=== PATIENT | male | born 1950 | race African-American/Black ===

== ENCOUNTER 2019-01-31 16:37 | Emergency (ER) | payer MEDICARE ==
[~2019-01-31] VITALS: Ht 175.3 cm; Wt 98.9 kg
[~2019-01-31 16:37] MED LIST: AMLO5TAB9 PO; ASPI-605 PO; ESCI10TA PO; LORA-259 PO; MYCO250C PO; PRED10TA PO; SIME80TA45 PO; TACR1CAP PO; TAMS-3 PO; VALS160T2 PO
--- NOTE | 2019-01-31 16:58 | NUR ---
LUIGI VIDALES AT BEDSIDE FOR MSE.
--- NOTE | 2019-01-31 17:20 | NUR ---
CLINICAL INTERVIEWER AT BEDSIDE.
[2019-01-31 17:30] LABS: *BILIRUBIN,URIN NEGATIVE (NEGATIVE); *CLARITY,URINE CLEAR (CLEAR); *COLOR,URINE YELLOW (YELLOW); *KETONES,URINE NEGATIVE (NEGATIVE); *UROBILINOGEN,URINE 0.2 E.U./dl (NORMAL); LEUKOCYTE ESTERASE ,URINE NEGATIVE (NEGATIVE); NITRITE, URINE NEGATIVE (NEGATIVE); PH,URINE 6.5 (5.0-8.0); UGLUCOSE NEGATIVE (NEGATIVE)
[2019-01-31 17:31] LABS: BASOPHILS # (AUTO) 0.1 K/uL (0.0-8.0); BASOPHILS % (AUTO) 0.7 % (0.0-2.0); EOSINOPHILS % (AUTO) 0.2 % (0.0-7.0); HEMOGLOBIN 14.3 g/dL (12.5-16.3); LYMPHOCYTES # (AUTO) 0.7 K/uL (20.0-40.0); LYMPHOCYTES % (AUTO) 8.6 % (20.5-51.5); MEAN CORPUSCULAR HGB CONC 32 g/dL (32.5-36.3); MEAN CORPUSCULAR VOLUME 81.7 fL (73.0-96.2); MONOCYTES # (AUTO) 0.9 K/uL (2.0-10.0); NEUTROPHILS # (AUTO) 6.5 K/uL (1.8-8.9); NEUTROPHILS % (AUTO) 79.5 % (38.5-71.5); PLATELET COUNT (AUTO) 234 K/uL (152-348); WHITE BLOOD COUNT (AUTO) 8.1 K/uL (3.6-10.2)
[2019-01-31 17:39] LABS: CREATININE 1.7 mg/dL (0.6-1.3)
[2019-01-31 17:49] LABS: *BLOOD, URINE TRACE (NEGATIVE)
[2019-01-31 17:50] LABS: SQUAMOUS EPITHELIAL CELL,UR FEW /HPF (NONE SEEN); WBC,URINE 0-3 /HPF (0-3)
[2019-01-31 17:51] LABS: MUCUS,URINE FEW /LPF (0-FEW)
[2019-01-31 17:52] LABS: BILIRUBIN,DIRECT 0.2 mg/dL (0.0-0.2); BILIRUBIN,TOTAL 0.3 mg/dL (0.2-1.0); TOTAL PROTEIN, SERUM 7.3 g/dL (6.4-8.2)
[2019-01-31] MEDS ORDERED: OSELTAMIVIR PHOSPHATE 75 MG CAPSULE ONE (18:27)
--- NOTE | 2019-01-31 18:27 | NUR ---
Patient discharged to home in stable conditon. Written and verbal after care instructions given. Patient verbalizes understanding of instructions.
[2019-01-31] MEDS ORDERED: OSELTAMIVIR PHOSPHATE 75 MG CAPSULE PO ONE (18:30)
== END 2019-01-31 18:29 | disposition home or self-care (01) ==
LOC: ER 16:38
DX: J10.1 Influenza due to other identified influenza virus with other respiratory manifestations (principal); R53.83 Other fatigue; M79.10 Myalgia, unspecified site; I10 Essential (primary) hypertension; Z94.0 Kidney transplant status; Z88.1 Allergy status to other antibiotic agents; Z88.8 Allergy status to other drugs, medicaments and biological substances; Z79.899 Other long term (current) drug therapy; Z79.82 Long term (current) use of aspirin
CPT/HCPCS: 36415; 70030-TC; 71045; 83605; 85025; 85730; 87040; 87086; 87400; 93005; A4663

== ENCOUNTER 2019-11-23 17:30 | Inpatient (IN) | payer MEDICARE ==
[~2019-11-23] VITALS: Ht 175.3 cm; Wt 95.3 kg
[2019-11-23] MEDS ORDERED: IV NORMAL SALINE 1000 ML BAG IV ONE (19:15)
[2019-11-23 19:31] LABS: BASOPHILS % (AUTO) 0.1 % (0.0-2.0); EOSINOPHILS % (AUTO) 0.4 % (0.0-7.0); HEMATOCRIT 46.1 % (36.7-47.1); HEMOGLOBIN 14.7 g/dL (12.5-16.3); LYMPHOCYTES # (AUTO) 1.4 K/uL (20.0-40.0); LYMPHOCYTES % (AUTO) 18.4 % (20.5-51.5); MEAN CORPUSCULAR HEMOGLOBIN 26.1 uug (23.8-33.4); MEAN CORPUSCULAR HGB CONC 32 g/dL (32.5-36.3); MEAN CORPUSCULAR VOLUME 81.6 fL (73.0-96.2); MONOCYTES % (AUTO) 13.7 % (0.0-11.0); NEUTROPHILS % (AUTO) 67.4 % (38.5-71.5); PLATELET COUNT (AUTO) 276 K/uL (152-348); RED BLOOD CELL COUNT(AUTO) 5.65 MIL/uL (4.06-5.63); WHITE BLOOD COUNT (AUTO) 7.4 K/uL (3.6-10.2)
[2019-11-23 19:56] LABS: CARBON DIOXIDE 24 mmol/L (21-32); CHLORIDE 106 mmol/L (98-107); CREATININE 1.7 mg/dL (0.6-1.3); GLUCOSE 104 mg/dL (74-106); POTASSIUM 4.2 mmol/L (3.5-5.1); UREA NITROGEN, BLOOD 23 mg/dL (7-18)
[2019-11-23 20:02] LABS: ALANINE AMINOTRANSFERASE 25 U/L (16-63); ALKALINE PHOSPHATASE 82 U/L (50-136); ASPARTATE AMINOTRANSFERASE 22 U/L (15-37); BILIRUBIN,DIRECT 0.1 mg/dL (0.0-0.2); BILIRUBIN,TOTAL 0.5 mg/dL (0.2-1.0); TOTAL PROTEIN, SERUM 7.4 g/dL (6.4-8.2)
[2019-11-23 21:20] LABS: *BILIRUBIN,URIN NEGATIVE (NEGATIVE); *CLARITY,URINE CLEAR (CLEAR); *COLOR,URINE YELLOW (YELLOW); *KETONES,URINE NEGATIVE (NEGATIVE); *UROBILINOGEN,URINE 0.2 E.U./dl (NORMAL); LEUKOCYTE ESTERASE ,URINE NEGATIVE (NEGATIVE); NITRITE, URINE NEGATIVE (NEGATIVE); UGLUCOSE NEGATIVE (NEGATIVE)
[2019-11-23 21:21] LABS: *BLOOD, URINE NEGATIVE (NEGATIVE)
[2019-11-23 21:29] LABS: BACTERIA,URINE NONE SEEN /HPF (NONE SEEN); RBC,URINE 0-3 /HPF (0-3); SQUAMOUS EPITHELIAL CELL,UR FEW /HPF (NONE SEEN); URINE AMORPHOUS URATE FEW /HPF; WBC,URINE 0-3 /HPF (0-3)
[2019-11-23 22:35] VITALS: BP 159/78
[2019-11-23] MEDS ORDERED: Z GUARD REMEDY PASTE 57 GM TUBE TOP PRN (23:15)
[2019-11-23] MEDS ORDERED: ONDANSETRON 4 MG/2 ML VIAL IV PRN (23:15)
[2019-11-23] MEDS ORDERED: TEMAZEPAM 15 MG CAPSULE PO PRN (23:15)
[2019-11-23] MEDS ORDERED: ACETAMINOPHEN 325 MG TABLET PO PRN (23:15)
[2019-11-24] VITALS (9 sets, daily range): BP systolic 136–175; BP diastolic 69–80
[2019-11-24] MEDS: IV NS 1000 ML 1,000 ML IV PRN (00:19)
[2019-11-24] MEDS: LORAZEPAM 1 MG TABLET PO PRN ×2 (00:19→21:14)
[2019-11-24 06:46] LABS: BASOPHILS % (AUTO) 0.1 % (0.0-2.0); EOSINOPHILS % (AUTO) 0.5 % (0.0-7.0); HEMATOCRIT 42.8 % (36.7-47.1); HEMOGLOBIN 13.5 g/dL (12.5-16.3); LYMPHOCYTES # (AUTO) 1.2 K/uL (20.0-40.0); LYMPHOCYTES % (AUTO) 22.1 % (20.5-51.5); MEAN CORPUSCULAR HEMOGLOBIN 25.9 uug (23.8-33.4); MEAN CORPUSCULAR HGB CONC 32 g/dL (32.5-36.3); MONOCYTES # (AUTO) 0.7 K/uL (2.0-10.0); MONOCYTES % (AUTO) 12.6 % (0.0-11.0); NEUTROPHILS # (AUTO) 3.6 K/uL (1.8-8.9); NEUTROPHILS % (AUTO) 64.7 % (38.5-71.5); PLATELET COUNT (AUTO) 250 K/uL (152-348); RED BLOOD CELL COUNT(AUTO) 5.22 MIL/uL (4.06-5.63); WHITE BLOOD COUNT (AUTO) 5.6 K/uL (3.6-10.2)
[2019-11-24 07:01] LABS: ALANINE AMINOTRANSFERASE 20 U/L (16-63); ALKALINE PHOSPHATASE 67 U/L (50-136); ASPARTATE AMINOTRANSFERASE 23 U/L (15-37); BILIRUBIN,TOTAL 0.5 mg/dL (0.2-1.0); CARBON DIOXIDE 23 mmol/L (21-32); CHLORIDE 109 mmol/L (98-107); CREATININE 1.4 mg/dL (0.6-1.3); GLUCOSE 84 mg/dL (74-106); PHOSPHOROUS 2.3 mg/dL (2.5-4.9); POTASSIUM 3.9 mmol/L (3.5-5.1); TOTAL PROTEIN, SERUM 6.1 g/dL (6.4-8.2); UREA NITROGEN, BLOOD 19 mg/dL (7-18)
[2019-11-24 07:10] LABS: MAGNESIUM 1.2 mg/dL (1.8-2.4)
[2019-11-24 07:11] LABS: THYROID STIMULATING HORMONE 1.879 mIU/mL (0.358-3.740)
[2019-11-24 07:49] LABS: CHOLESTEROL 97 mg/dL (<200); HDL CHOLESTEROL 47 mg/dL (40-60); TRIGLYCERIDES 103 MG/DL (30-150)
[2019-11-24] MEDS ORDERED: MAGNESIUM SULFATE 2 GM in IV DEXTROSE 5% 100 ML IV ONE (08:45)
[2019-11-24] MEDS ORDERED: TACROLIMUS ANHYDROUS 1 MG CAPSULE PO SCH (09:00)
[2019-11-24] MEDS: TACROLIMUS ANHYDROUS 0.5 MG CAPSULE PO SCH ×2 (09:09→17:10)
[2019-11-24] MEDS: ASPIRIN EC 81 MG TABLET.DR PO SCH (09:14)
[2019-11-24] MEDS: predniSONE 10 MG TABLET PO SCH (09:15)
[2019-11-24] MEDS ORDERED: NEUTRA PHOS PACKET PO ONE (09:15)
[2019-11-24] MEDS: AMLODIPINE 5 MG TABLET PO SCH ×2 (09:16→21:14)
[2019-11-24] MEDS: MYCOPHENOLATE MOFETIL 250 MG CAPSULE PO SCH ×2 (09:17→17:10)
[2019-11-24] MEDS: MAGNESIUM SULFATE/D5W 100 ML IV SCH ×2 (09:18→10:48)
[2019-11-25 00:39] VITALS: BP 149/78
[2019-11-25] MEDS: IV NS 1000 ML 1,000 ML IV PRN (03:56)
[2019-11-25 05:11] VITALS: BP 131/77
[2019-11-25 06:49] LABS: CREATININE 1.3 mg/dL (0.6-1.3); MAGNESIUM 1.5 mg/dL (1.8-2.4); PHOSPHOROUS 2.4 mg/dL (2.5-4.9)
[2019-11-25 06:56] LABS: BASOPHILS % (AUTO) 0.2 % (0.0-2.0); NEUTROPHILS # (AUTO) 6.5 K/uL (1.8-8.9)
[2019-11-25 07:26] LABS: EOSINOPHILS % (AUTO) 0.4 % (0.0-7.0); LYMPHOCYTES # (AUTO) 1.2 K/uL (20.0-40.0); LYMPHOCYTES % (AUTO) 13.6 % (20.5-51.5); MEAN CORPUSCULAR HEMOGLOBIN 26.1 uug (23.8-33.4); MEAN CORPUSCULAR HGB CONC 32 g/dL (32.5-36.3); MEAN CORPUSCULAR VOLUME 81.7 fL (73.0-96.2); MONOCYTES # (AUTO) 0.8 K/uL (2.0-10.0); NEUTROPHILS % (AUTO) 76.8 % (38.5-71.5); PLATELET COUNT (AUTO) 256 K/uL (152-348); RED BLOOD CELL COUNT(AUTO) 5.39 MIL/uL (4.06-5.63)
[2019-11-25 07:29] LABS: WHITE BLOOD COUNT (AUTO) 8.5 K/uL (3.6-10.2)
[2019-11-25] MEDS: predniSONE 10 MG TABLET PO SCH (09:24)
[2019-11-25] MEDS: ASPIRIN EC 81 MG TABLET.DR PO SCH (09:24)
[2019-11-25] MEDS: TACROLIMUS ANHYDROUS 0.5 MG CAPSULE PO SCH (09:24)
[2019-11-25 09:25] VITALS: BP 161/75
[2019-11-25] MEDS: AMLODIPINE 5 MG TABLET PO SCH (09:25)
[2019-11-25] MEDS: MYCOPHENOLATE MOFETIL 250 MG CAPSULE PO SCH (09:27)
[2019-11-25] MEDS ORDERED: MAGNESIUM OXIDE 400 MG TABLET PO ONE (10:00)
[2019-11-25] MEDS ORDERED: NEUTRA PHOS PACKET PO ONE (10:00)
== END 2019-11-25 11:00 | disposition home or self-care (01) | DRG 698 ==
LOC: ER 17:33 → TELE3 22:06
PROVIDERS: ADMIT Hospitalist; ATTEND Hospitalist
DX: T86.19 Other complication of kidney transplant (principal); N17.0 Acute kidney failure with tubular necrosis; E86.0 Dehydration; J32.2 Chronic ethmoidal sinusitis; E83.42 Hypomagnesemia; E83.39 Other disorders of phosphorus metabolism; F12.90 Cannabis use, unspecified, uncomplicated; J84.10 Pulmonary fibrosis, unspecified; R00.1 Bradycardia, unspecified; I11.9 Hypertensive heart disease without heart failure; I70.0 Atherosclerosis of aorta; E78.5 Hyperlipidemia, unspecified; K59.00 Constipation, unspecified
CPT/HCPCS: 36415; 70030-TC; 70450; 71045; 83735; 84100; 84443; 85025; 85730; 93005; 93307; 93880; A4663; G0378; J3475; J7030; J7507; J7512; J7517

== ENCOUNTER 2019-12-19 18:02 | Emergency (ER) | payer MEDICARE ==
[~2019-12-19] VITALS: Ht 175.3 cm; Wt 98.0 kg
[2019-12-19] MEDS ORDERED: MORPHINE SULFATE 10 MG/1 ML DISP.SYRIN IM ONE (18:15)
[2019-12-19] MEDS ORDERED: ONDANSETRON 4 MG/2 ML VIAL IM ONE (18:15)
[2019-12-19] MEDS ORDERED: ONDANSETRON 4 MG/2 ML VIAL ONE (18:17)
[2019-12-19] MEDS ORDERED: MORPHINE SULFATE 4 MG/1 ML DISP.SYRIN ONE (18:17)
[2019-12-19] MEDS ORDERED: MORPHINE SULFATE 2 MG/1 ML DISP.SYRIN ONE (18:18)
[2019-12-19] MEDS ORDERED: IV NORMAL SALINE 1000 ML BAG IV ONE (18:45)
--- NOTE | 2019-12-19 19:01 | NUR ---
Patient discharged to home in stable conditon. Written and verbal after care instructions given. Patient verbalizes understanding of instructions.pt accompanied by . pt not driving.
[2019-12-19 19:02] VITALS: BP 161/71
== END 2019-12-19 19:03 | disposition home or self-care (01) ==
LOC: ER 18:02
DX: M54.5 Low back pain (principal)
CPT/HCPCS: 96372 ×2; 99284; J2270 ×3; J2405; A4663; J7030

== ENCOUNTER 2020-03-27 00:21 | Emergency (ER) | payer MEDICARE ==
[~2020-03-27] VITALS: Ht 175.3 cm; Wt 95.3 kg
[~2020-03-27 00:21] MED LIST changes: -ESCI10TA PO; -SIME80TA45 PO; -TACR1CAP PO; +TACR1CAP2 PO; -TAMS-3 PO; -VALS160T2 PO
--- NOTE | 2020-03-27 00:21 | NUR ---
Pt brought in by [id number]. AO x 4. Per patient, he is here for lower back pain, currently 04/01, but patient was unable to get up from the floor as he went to the bathroom today. Denies any other issues or complaints. Breathing even and unlabored. No signs of acute distress. Side rails up x 2. Bed locked in position.
--- NOTE | 2020-03-27 00:30 | NUR ---
Dr Tijerina at bedside for MSE.
[2020-03-27] MEDS ORDERED: MORPHINE SULFATE 4 MG/1 ML DISP.SYRIN ONE (00:38)
[2020-03-27] MEDS ORDERED: ONDANSETRON 4 MG/2 ML VIAL ONE (00:38)
[2020-03-27] MEDS ORDERED: MORPHINE SULFATE 4 MG/1 ML DISP.SYRIN IM ONE (00:45)
[2020-03-27] MEDS ORDERED: ONDANSETRON 4 MG/2 ML VIAL IM ONE (00:45)
[2020-03-27 00:58] VITALS: BP 120/77
--- NOTE | 2020-03-27 01:02 | NUR ---
Pt verbalized that pain is now 3/10 only when moving, and better during rest. MD cleared patient for discharge and RN explained all discharge instructions to patient. Pt's is picking up pt, pt is aware that he cannot drive or operate any machinery since Morphine was administered. Denies any feeling of nausea after Zofran was given. Pt verbalized understanding of all instructions and is aware of when to take home medications for pain/contact primary doctor or seek emergency care. Pt was wheeled out to the front door, assisted by RN to private car, with his driving. Reinforced instructions. Pt left in stable condition.
== END 2020-03-27 01:02 | disposition home or self-care (01) ==
LOC: ER 00:27
DX: M54.40 Lumbago with sciatica, unspecified side (principal); Z94.0 Kidney transplant status
CPT/HCPCS: 96372 ×2; 99284; J2270; J2405; A4663

== ENCOUNTER 2020-11-30 11:45 | Emergency (ER) | payer MEDICARE ==
[~2020-11-30] VITALS: Ht 175.3 cm; Wt 93.0 kg
[~2020-11-30 11:45] MED LIST changes: +AMLO-212 PO; -AMLO5TAB9 PO
[2020-11-30] MEDS ORDERED: IV NORMAL SALINE 1000 ML BAG IV ONE (12:15)
--- NOTE | 2020-11-30 12:19 | NUR ---
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 YASH Saucedo at [phone], per pt request, recieved the confirmation.
[2020-11-30 12:31] LABS: BASOPHILS % (AUTO) 0.2 % (0.0-2.0); EOSINOPHILS # (AUTO) 0.1 K/uL (0.0-0.7); EOSINOPHILS % (AUTO) 0.7 % (0.0-7.0); HEMATOCRIT 42.2 % (36.7-47.1); HEMOGLOBIN 13.2 g/dL (12.5-16.3); LYMPHOCYTES # (AUTO) 0.6 K/uL (20.0-40.0); LYMPHOCYTES % (AUTO) 5.1 % (20.5-51.5); MEAN CORPUSCULAR HEMOGLOBIN 25.8 uug (23.8-33.4); MEAN CORPUSCULAR HGB CONC 31 g/dL (32.5-36.3); MEAN CORPUSCULAR VOLUME 82.1 fL (73.0-96.2); MONOCYTES # (AUTO) 0.5 K/uL (2.0-10.0); MONOCYTES % (AUTO) 4.4 % (0.0-11.0); NEUTROPHILS # (AUTO) 10.7 K/uL (1.8-8.9); NEUTROPHILS % (AUTO) 89.6 % (38.5-71.5); PLATELET COUNT (AUTO) 240 K/uL (152-348); RED BLOOD CELL COUNT(AUTO) 5.14 MIL/uL (4.06-5.63)
[2020-11-30 12:37] LABS: CARBON DIOXIDE 23 mmol/L (21-32); CHLORIDE 104 mmol/L (98-107); CREATININE 1.8 mg/dL (0.6-1.3); GLUCOSE 115 mg/dL (74-106); POTASSIUM 3.9 mmol/L (3.5-5.1); UREA NITROGEN, BLOOD 34 mg/dL (7-18)
[2020-11-30 12:50] LABS: ALANINE AMINOTRANSFERASE 20 U/L (16-63); ALKALINE PHOSPHATASE 61 U/L (50-136); ASPARTATE AMINOTRANSFERASE 22 U/L (15-37); BILIRUBIN,DIRECT 0.1 mg/dL (0.0-0.2); BILIRUBIN,TOTAL 0.5 mg/dL (0.2-1.0); TOTAL PROTEIN, SERUM 7.4 g/dL (6.4-8.2)
[2020-11-30] MEDS ORDERED: DICYCLOMINE HCL LIQ 10 MG/5 ML UDC PO ONE (13:00)
[2020-11-30] MEDS ORDERED: MAG HYDROX/AL HYDROX/SIMETH 30 ML LIQUID UDC PO ONE (13:00)
[2020-11-30] MEDS ORDERED: DICYCLOMINE HCL LIQ 10 MG/5 ML UDC ONE (13:08)
[2020-11-30] MEDS ORDERED: MAG HYDROX/AL HYDROX/SIMETH 30 ML LIQUID UDC ONE (13:08)
--- NOTE | 2020-11-30 13:10 | NUR ---
pt requesting a second ekg to be done. md shahid.
--- NOTE | 2020-11-30 13:22 | NUR ---
Patient discharged to home in stable condition. Written and verbal after care instructions given. Patient verbalizes understanding of instructions. Stressed follow up or return to ER for worsening s/s.pt walks in steady gait. pt deneis cp/sob at the time of d/c. a copy of allthe studies provided for pt.
[2020-11-30 13:28] VITALS: BP 149/75
== END 2020-11-30 13:28 | disposition home or self-care (01) ==
LOC: ER 11:45
DX: R07.89 Other chest pain (principal); R94.31 Abnormal electrocardiogram [ECG] [EKG]; Z94.0 Kidney transplant status; I11.9 Hypertensive heart disease without heart failure; Z88.1 Allergy status to other antibiotic agents; Z88.8 Allergy status to other drugs, medicaments and biological substances; Z79.82 Long term (current) use of aspirin; Z79.52 Long term (current) use of systemic steroids; Z79.899 Other long term (current) drug therapy; Z20.822 Contact with and (suspected) exposure to COVID-19
CPT/HCPCS: 36415; 71045; 80048; 80076; 83880; 84484; 85025; 85730; 87426; 93005 ×2; 96360; 99285; U0003; 70030-TC; A4663; J7030

== ENCOUNTER 2022-05-11 16:22 | Emergency (ER) | payer MEDICARE ==
--- NOTE | 2022-05-11 16:33 | NUR ---
PT WAS CALLED TO TRIAGE AREA NO ANSWER. PT IS NOT IN WAITING ROOM AND NOT OUTSIDE OF ER.
== END 2022-05-11 16:54 | disposition left against medical advice (07) ==
LOC: ER 16:22
DX: Z53.21 Procedure and treatment not carried out due to patient leaving prior to being seen by health care provider (principal)

== ENCOUNTER 2022-08-19 18:02 | Inpatient (IN) | payer MEDICARE ==
[~2022-08-19] VITALS: Ht 175.3 cm; Wt 93.0 kg
[2022-08-19] MEDS ORDERED: IV NORMAL SALINE 1000 ML BAG IV ONE ×2 (19:00→20:30)
[2022-08-19 19:22] LABS: HEMATOCRIT 35.1 % (36.7-47.1); MEAN CORPUSCULAR HEMOGLOBIN 25.2 uug (23.8-33.4); MEAN CORPUSCULAR VOLUME 77.8 fL (73.0-96.2); PLATELET COUNT (AUTO) 319 K/uL (152-348)
[2022-08-19 19:28] LABS: CARBON DIOXIDE 25 mmol/L (21-32); CHLORIDE 103 mmol/L (98-107); CREATININE 2.1 mg/dL (0.6-1.3); GLUCOSE 95 mg/dL (74-106); POTASSIUM 4.4 mmol/L (3.5-5.1); UREA NITROGEN, BLOOD 60 mg/dL (7-18)
[2022-08-19 19:31] LABS: MAGNESIUM 1.5 mg/dL (1.8-2.4); PHOSPHOROUS 3.9 mg/dL (2.5-4.9)
[2022-08-19 19:36] LABS: ALANINE AMINOTRANSFERASE 112 U/L (16-63); ALKALINE PHOSPHATASE 84 U/L (50-136); ASPARTATE AMINOTRANSFERASE 116 U/L (15-37); BILIRUBIN,DIRECT 0.1 mg/dL (0.0-0.2); BILIRUBIN,TOTAL 0.2 mg/dL (0.2-1.0); TOTAL PROTEIN, SERUM 7.1 g/dL (6.4-8.2)
--- NOTE | 2022-08-19 19:48 | NUR ---
pt resting comfortably in bed. handoff report given to Sarah mendenhall RN. pt in stable condition.
[2022-08-19] MEDS ORDERED: ATOR10TA PO (21:09)
[2022-08-19] MEDS ORDERED: DUTA0.5C PO (21:09)
[2022-08-19] MEDS ORDERED: TADA5TAB2 PO (21:09)
[2022-08-19] MEDS ORDERED: ERGO400C PO (21:09)
[2022-08-19] MEDS ORDERED: ALLO100T PO (21:09)
[2022-08-19] MEDS ORDERED: PRED2.5T PO (21:09)
[2022-08-19] MEDS ORDERED: PANT40TA2 PO (21:09)
[2022-08-19] MEDS ORDERED: LEVO1CAP4 PO (21:09)
[2022-08-19] MEDS ORDERED: UBID50TA3 PO (21:09)
[2022-08-19] MEDS ORDERED: MAGN400C PO (21:09)
[2022-08-19] MEDS ORDERED: ESCI5TAB PO (21:09)
[2022-08-19] MEDS ORDERED: TRAZ-182 PO (21:09)
[2022-08-19] MEDS ORDERED: CINA30TA2 PO (21:09)
[2022-08-19] MEDS ORDERED: ACETAMINOPHEN ES 500 MG TABLET ONE (22:42)
[2022-08-19] MEDS ORDERED: ACETAMINOPHEN ES 500 MG TABLET PO ONE (22:45)
[2022-08-20] VITALS (7 sets, daily range): BP systolic 115–144; BP diastolic 53–66
[2022-08-20] MEDS ORDERED: MAGNESIUM OXIDE 400 MG TABLET PO ONE (00:45)
[2022-08-20] MEDS ORDERED: ACETAMINOPHEN 325 MG TABLET PO PRN (00:45)
[2022-08-20] MEDS ORDERED: ONDANSETRON 4 MG/2 ML VIAL IV PRN (00:45)
--- NOTE | 2022-08-20 06:00 | NUR ---
--RECEIVED PT NEW ADMIT FROM ER WITH C/O DIZZINESS. PT STATES HE LOST HIS BALANCE AND BECAME DIZZY WHEN HE CAME OUT OF AN UBER CAR. PT DENIES ANY DIZZINESS OF DISCOMFORT AT THIS TIME. PT HAS BEEN A/OX4. RESPS REG/UNLAB. ON . PT HAD AN IV VIA RIGHT ARM/AC-IV D/CD. NEW PIV STARTED IN LEFT ARM WRIST-20G. NS 75CC/HR INFUSING WELL INTO NEW LEFT WRIST IV. PT ALSO STATES THAT HE HAD A KIDNEY TRANSPLANT 18YRS AGO AND CONT. TO TAKE TRANSPLANT MEDS. PT HAS BEEN VOIDING WELL VIA URINAL->300CC-YELL/CLR. PT REQUESTED ATIVAN 0.5MG PO-ORD. WAS MADE FROM TODD VASQUEZ. MED NOT GIVEN YET-PT HAS BEEN SLEEPING QUIETLY. PT ENDORSED TO GRETEL ALEXIS RN
[2022-08-20 07:25] LABS: MEAN CORPUSCULAR VOLUME 77.3 fL (73.0-96.2); PLATELET COUNT (AUTO) 265 K/uL (152-348)
[2022-08-20 07:34] LABS: ALANINE AMINOTRANSFERASE 97 U/L (16-63); ALKALINE PHOSPHATASE 72 U/L (50-136); ASPARTATE AMINOTRANSFERASE 94 U/L (15-37); BILIRUBIN,DIRECT 0.1 mg/dL (0.0-0.2); BILIRUBIN,TOTAL 0.1 mg/dL (0.2-1.0); CARBON DIOXIDE 26 mmol/L (21-32); CHLORIDE 107 mmol/L (98-107); CHOLESTEROL 128 mg/dL (<200); CREATININE 1.7 mg/dL (0.6-1.3); GLUCOSE 72 mg/dL (74-106); HDL CHOLESTEROL 66 mg/dL (40-60); MAGNESIUM 1.4 mg/dL (1.8-2.4); PHOSPHOROUS 3.9 mg/dL (2.5-4.9); POTASSIUM 4.6 mmol/L (3.5-5.1); TRIGLYCERIDES 79 MG/DL (30-150); UREA NITROGEN, BLOOD 51 mg/dL (7-18)
--- NOTE | 2022-08-20 07:45 | NUR ---
received pt on bed resting. pt aox4. no complain of dizziness. ambulatory with assist. pt is fall risk. left wrist 20g patent and intact. vitals wnl. will cont to monitor.
--- NOTE | 2022-08-20 10:58 | NUR ---
pt will be transfer to [facility] per cm. notified.
[2022-08-20] MEDS ORDERED: TACR1CAP2 PO (11:06)
[2022-08-20] MEDS ORDERED: ROSU5TAB PO (11:09)
[2022-08-20 11:10] LABS: *OCCULT BLOOD STOOL NEGATIVE (NEGATIVE)
[2022-08-20] MEDS: MAGNESIUM SULFATE/D5W 100 ML IV SCH ×2 (11:45→13:24)
--- NOTE | 2022-08-20 14:20 | NUR ---
orthostatic bp obtained
[2022-08-20 14:45] LABS: *BILIRUBIN,URIN NEGATIVE (NEGATIVE); *CLARITY,URINE CLEAR (CLEAR); *COLOR,URINE YELLOW (YELLOW); *KETONES,URINE NEGATIVE (NEGATIVE); *UROBILINOGEN,URINE 0.2 E.U./dl (NORMAL); LEUKOCYTE ESTERASE ,URINE NEGATIVE (NEGATIVE); NITRITE, URINE NEGATIVE (NEGATIVE); PH,URINE 5.5 (5.0-8.0); UGLUCOSE NEGATIVE (NEGATIVE)
[2022-08-20 14:46] LABS: *BLOOD, URINE TRACE (NEGATIVE)
[2022-08-20] MEDS: MYCOPHENOLATE MOFETIL 250 MG CAPSULE PO SCH (18:18)
[2022-08-20] MEDS: ASPIRIN EC 81 MG TABLET.DR PO SCH (18:18)
[2022-08-20] MEDS: ALLOPURINOL 100 MG TABLET PO SCH (18:19)
[2022-08-20] MEDS: TRAZODONE 50 MG TABLET PO SCH (18:19)
[2022-08-20] MEDS: CHOLECALCIFEROL 1,000 UNIT TABLET PO SCH (18:19)
[2022-08-20] MEDS: ESCITALOPRAM OXALATE 10 MG TABLET PO SCH (18:19)
[2022-08-20] MEDS: CINACALCET HCL 30 MG TABLET PO SCH (18:19)
--- NOTE | 2022-08-20 20:43 | NUR ---
Pt rec'd awake alert On room air saturating 97% No distress noted.
[2022-08-20] MEDS ORDERED: ATORVASTATIN 20 MG TABLET PO SCH ×2 (21:00)
[2022-08-20] MEDS: TACROLIMUS ANHYDROUS 0.5 MG CAPSULE PO SCH (21:00)
[2022-08-20 21:08] LABS: BACTERIA,URINE NONE SEEN /HPF (NONE SEEN); MUCUS,URINE FEW /LPF (0-FEW); SQUAMOUS EPITHELIAL CELL,UR FEW /HPF (NONE SEEN); WBC,URINE 0-3 /HPF (0-3)
[2022-08-20] MEDS: LORAZEPAM 0.5 MG TABLET PO PRN (22:38)
[2022-08-21 00:37] VITALS: BP 115/59
[2022-08-21] MEDS: IV NS 1000 ML 1,000 ML IV PRN ×2 (01:23→17:15)
[2022-08-21 04:52] VITALS: BP 117/63
--- NOTE | 2022-08-21 06:36 | NUR ---
Pt noted with Heart rate low to 39 but asymptomatic. Awaken pt stated that he feels ok. Transfer Center Updated on pt's status. No bed available at [facility] at this time.
[2022-08-21 07:22] LABS: CARBON DIOXIDE 27 mmol/L (21-32); CHLORIDE 111 mmol/L (98-107); CREATININE 1.6 mg/dL (0.6-1.3); GLUCOSE 90 mg/dL (74-106); MAGNESIUM 1.8 mg/dL (1.8-2.4); POTASSIUM 4.8 mmol/L (3.5-5.1); UREA NITROGEN, BLOOD 40 mg/dL (7-18)
--- NOTE | 2022-08-21 07:30 | NUR ---
AWAKE ALERT AND ORIENTED X3 DENIES PAIN OR SOB,100% ON RA
[2022-08-21] MEDS ORDERED: DUTASTERIDE 0.5 MG CAPSULE PO SCH (09:00)
[2022-08-21] MEDS: MYCOPHENOLATE MOFETIL 250 MG CAPSULE PO SCH ×2 (09:10→17:14)
[2022-08-21] MEDS: ASPIRIN EC 81 MG TABLET.DR PO SCH (09:11)
[2022-08-21] MEDS: predniSONE 2.5 MG TABLET PO SCH (09:11)
[2022-08-21] MEDS: ESCITALOPRAM OXALATE 10 MG TABLET PO SCH (09:11)
[2022-08-21] MEDS: CHOLECALCIFEROL 1,000 UNIT TABLET PO SCH (09:12)
[2022-08-21] MEDS: PANTOPRAZOLE SODIUM 40 MG TABLET.DR PO SCH (09:12)
[2022-08-21] MEDS: ALLOPURINOL 100 MG TABLET PO SCH ×2 (09:12→21:16)
[2022-08-21] MEDS: TACROLIMUS ANHYDROUS 0.5 MG CAPSULE PO SCH ×3 (09:12→21:16)
[2022-08-21] MEDS: CINACALCET HCL 30 MG TABLET PO SCH (09:12)
[2022-08-21] MEDS ORDERED: TACR1CAP2 PO (09:34)
[2022-08-21 11:23] VITALS: BP 126/56
--- NOTE | 2022-08-21 12:00 | NUR ---
NO ACUTE CHANGE FROM MORNING ASSESSMENT. SB ON MONITOR ON THE 40'S
[2022-08-21 15:11] VITALS: BP 116/57
--- NOTE | 2022-08-21 16:25 | NUR ---
STILL WAITING FOR BED AVAILABILITY FROM [facility] FOR HIGHER LEVEL OF CARE. SR ON MONITOR
[2022-08-21] MEDS: TRAZODONE 50 MG TABLET PO SCH ×2 (17:14→17:30)
[2022-08-21 20:00] VITALS: BP 141/69
[2022-08-21] MEDS: DUTASTERIDE 0.5 MG CAPSULE PO SCH (21:16)
[2022-08-21] MEDS: LORAZEPAM 0.5 MG TABLET PO PRN (22:27)
[2022-08-22] VITALS: BP 135/57
[2022-08-22 04:00] VITALS: BP 134/63
[2022-08-22] MEDS: IV NS 1000 ML 1,000 ML IV PRN ×2 (04:13→18:50)
--- NOTE | 2022-08-22 07:52 | NUR ---
RESTING IN BED AWAKE ALERT AND ORIENTED X3 DENIES PAIN, NO SS OF DISTRESS SB 1ST DEGREE BLOCK ON MONITOR. STILL AWAITING PLACEMENT TO [facility] FOR HIGHER LEVEL OF CARE
[2022-08-22] MEDS ORDERED: CHOLECALCIFEROL 1,000 UNIT TABLET PO SCH (09:00)
[2022-08-22] MEDS: MYCOPHENOLATE MOFETIL 250 MG CAPSULE PO SCH ×2 (09:09→17:08)
[2022-08-22] MEDS: ASPIRIN EC 81 MG TABLET.DR PO SCH (09:09)
[2022-08-22] MEDS: PANTOPRAZOLE SODIUM 40 MG TABLET.DR PO SCH (09:09)
[2022-08-22] MEDS: TACROLIMUS ANHYDROUS 0.5 MG CAPSULE PO SCH ×2 (09:10→20:25)
[2022-08-22] MEDS: ESCITALOPRAM OXALATE 10 MG TABLET PO SCH (09:10)
[2022-08-22] MEDS: predniSONE 2.5 MG TABLET PO SCH (09:10)
[2022-08-22] MEDS: CINACALCET HCL 30 MG TABLET PO SCH (09:11)
--- NOTE | 2022-08-22 11:00 | NUR ---
SEEN BY DR PARIKH FOR CARDIAC FOLLOW-UP SEE NOTES. REMAINS SR ON MONITOR
[2022-08-22 11:20] LABS: HEMATOCRIT 31.5 % (36.7-47.1); MEAN CORPUSCULAR HEMOGLOBIN 24.9 uug (23.8-33.4); MEAN CORPUSCULAR VOLUME 79.3 fL (73.0-96.2); PLATELET COUNT (AUTO) 226 K/uL (152-348)
[2022-08-22 11:31] LABS: ALANINE AMINOTRANSFERASE 65 U/L (16-63); ALKALINE PHOSPHATASE 65 U/L (50-136); ASPARTATE AMINOTRANSFERASE 42 U/L (15-37); BILIRUBIN,DIRECT < 0.1 mg/dL (0.0-0.2); BILIRUBIN,TOTAL 0.2 mg/dL (0.2-1.0); TOTAL PROTEIN, SERUM 5.8 g/dL (6.4-8.2)
[2022-08-22 11:42] LABS: CARBON DIOXIDE 21 mmol/L (21-32); CHLORIDE 110 mmol/L (98-107); CREATININE 1.4 mg/dL (0.6-1.3); GLUCOSE 122 mg/dL (74-106); UREA NITROGEN, BLOOD 36 mg/dL (7-18)
[2022-08-22 16:35] VITALS: BP 137/65
[2022-08-22] MEDS: TRAZODONE 50 MG TABLET PO SCH (17:08)
[2022-08-22 20:00] VITALS: BP 129/65
[2022-08-22] MEDS: DUTASTERIDE 0.5 MG CAPSULE PO SCH (20:25)
[2022-08-22] MEDS: ALLOPURINOL 100 MG TABLET PO SCH (20:25)
--- NOTE | 2022-08-22 22:00 | NUR ---
Patient alert oriented, no sob no chest pain, sinus alan on tele monitor, 44. [facility], patient okeyed the transfer, at bedside, signed the consent for transfer. cont to monitor.
--- NOTE | 2022-08-22 23:38 | NUR ---
[facility] called and reported that there bed for the patient, Notify Ana Barksdale FORKLIFT TECHNICIAN for available bed and patient need to completer her part of the discharge. Shamir BROOKS state to discharge the patient and she will fax the discharge to [facility] herself. Place a call to [facility] and gave report to Juan Conner RN, ambulance [facility] came to pick the patient and gave report to EMT that patient going to 58, and the receiving MD will be Akbar Blank phone [phone] option 2.
--- NOTE | 2022-08-22 23:46 | NUR ---
Patient took all belongings, left wrist 20 gauge IV line left there, per Nanda Gee, GRETEL and admitting staff request.
[2022-08-23] MEDS ORDERED: MYCOPHENOLATE MOFETIL 250 MG CAPSULE PO SCH (09:00)
== END 2022-08-22 23:30 | disposition short-term general hospital (02) | DRG 698 ==
LOC: ER 18:02 → TELE3 22:00
PROVIDERS: ADMIT Nurse Practitioner Acute Care; ATTEND Nurse Practitioner Acute Care
DX: T86.12 Kidney transplant failure (principal); N17.0 Acute kidney failure with tubular necrosis; E44.1 Mild protein-calorie malnutrition; I50.32 Chronic diastolic (congestive) heart failure; I13.0 Hypertensive heart and chronic kidney disease with heart failure and stage 1 through stage 4 chronic kidney disease, or unspecified chronic kidney disease; T86.11 Kidney transplant rejection; E83.42 Hypomagnesemia; E88.09 Other disorders of plasma-protein metabolism, not elsewhere classified; Z87.01 Personal history of pneumonia (recurrent); Z86.16 Personal history of COVID-19; D53.1 Other megaloblastic anemias, not elsewhere classified; R74.01 Elevation of levels of liver transaminase levels; M54.30 Sciatica, unspecified side; I11.0 Hypertensive heart disease with heart failure; R53.1 Weakness; D64.9 Anemia, unspecified; Z68.30 Body mass index [BMI] 30.0-30.9, adult; I44.0 Atrioventricular block, first degree; I44.7 Left bundle-branch block, unspecified; N18.9 Chronic kidney disease, unspecified; Y83.0 Surgical operation with transplant of whole organ as the cause of abnormal reaction of the patient, or of later complication, without mention of misadventure at the time of the procedure; Z79.52 Long term (current) use of systemic steroids; Y92.009 Unspecified place in unspecified non-institutional (private) residence as the place of occurrence of the external cause
CPT/HCPCS: 36415; 71045; 83735; 84100; 84484; 85025; 85730; 93005; A4663; A9150; G0378; J3475; J7040; J7042; J7507; J7512; J7517; J8499